=== PATIENT | male | born 1975 | race Caucasian/White ===

== ENCOUNTER 2020-03-22 12:39 | Emergency (ER) | payer SELFPAY ==
[~2020-03-22] VITALS: Ht 188 cm; Wt 95.3 kg
[2020-03-22 12:45] VITALS: Ht 188 cm; Wt 95.3 kg
[2020-03-22 14:02] VITALS: BP 138/94
== END 2020-03-22 14:02 | disposition home or self-care (01) ==
LOC: ED 12:39
DX: S01.112A Laceration without foreign body of left eyelid and periocular area, initial encounter (principal); X58.XXXA Exposure to other specified factors, initial encounter; Y93.89 Activity, other specified; Y92.89 Other specified places as the place of occurrence of the external cause; Y99.8 Other external cause status
CPT/HCPCS: J2001